=== PATIENT | male | born 1950 | race Caucasian/White ===

== ENCOUNTER → 2022-03-23 | Outpatient (CLI) | payer MEDICARE, OTHER ==
--- NOTE | 2022-03-23 14:43 | CT ---
EXAMINATION TYPE: CT left knee - [facility] Protocol CT DLP: 607 mGycm, Automated exposure control for dose reduction was used. DATE OF EXAM: 03/23/2022 1:48 PM COMPARISON: None CLINICAL INDICATION:Male, 72 years old with history of M25.562 PAIN IN LEFT KNEE, Left knee pain TECHNIQUE: Axial images were obtained of the left knee , hips, pelvis and left ankle. Additional cor onal and sagittal reformatted images and soft tissue and bone window were obtained for review. Contrast used: None Oral contrast used: None FINDINGS: There is osteophyte formation of the left patella, femoral condyles and tibial plateau. Nelida nt space narrowing is seen throughout the knee compartments. There is complete cartilage loss involvi ng the lateral femoral condyle with subchondral cystic changes and sclerosis. There is subchondral cy stic changes involving the patellar facets both the medial and lateral aspects. There is no evidence of fracture, subluxation, or dislocation. No significant soft tissue swelling or joint effusion is i dentified. No focal muscular atrophy or edema is identified. No radiopaque foreign body identified. V isualized portions of the ankle joints demonstrate mild osteoarthrosis changes. No evidence of fractu re. There is an os trigonum present. Mild osteophyte formation of the acetabula bilaterally. There is subchondral cystic changes of the acetabulum on the right greater than the left.. Atherosclerosis of the arterial vasculature. Right fat filled inguinal hernia. Scattered clonic diver ticula. IMPRESSION: 1. Severe osteoarthrosis of the left knee. 2. Severe right and moderate left hip osteoarthrosis. 3. No evidence of fracture.
== END | disposition home or self-care (01) ==
LOC: RADCTMAIN 13:06
PROVIDERS: ATTEND Orthopaedic Surgery
DX: M17.12 Unilateral primary osteoarthritis, left knee (principal); M16.0 Bilateral primary osteoarthritis of hip

== ENCOUNTER → 2022-03-30 | Outpatient (CLI) | payer MEDICARE, OTHER ==
[2022-03-30 13:39] LABS: Appearance,Urine Clear (Clear); Bilirubin,Urine Negative (Negative); Blood,Urine Small (Negative); Color,Urine Yellow; Glucose,Urine (UA) Negative (Negative); Ketones,Urine Negative (Negative); Leukocyte Esterase,Urine Negative (Negative); Mucus,Urine Rare /hpf; Nitrite,Urine Negative (Negative); PH, Urine 7.5 (5.0-8.0); Protein,Urine 1+ (Negative); RBC,Urine 54 /hpf (0-5); Specific Gravity,Urine 1.019 (1.001-1.035); Squamous Epithelial Cell,Urine <1 /hpf (0-4); WBC,Urine 1 /hpf (0-5)
[2022-03-30 13:41] LABS: Partial Thromboplastin Time 24.3 sec (22.0-30.0); Prothrombin Time 11.1 sec (9.0-12.0)
[2022-03-30 18:07] LABS: HCT 52.4 % (39.6-50.0); HGB 17.9 g/dL (13.0-17.0); MCH 32.8 pg (27.0-32.0); MCHC 34.2 g/dL (32.0-37.0); Mean Platelet Volume 10.3 fL (9.5-12.2); NRBC Per 100 WBC 0 /100 WBCS (0.0-0.0); Platelet Count 207 X 10*3/uL (140-440); RBC 5.46 X 10*6/uL (4.40-5.60); WBC 6.94 X 10*3/uL (4.50-10.00)
[2022-03-30 18:17] LABS: African American GFR (CKD) 82.2 (60.0-200.0); Albumin 4.1 g/dL (3.8-4.9); Albumin/Globulin Ratio 1.86 (1.60-3.17); Anion Gap 11.6 mmol/L (10.00-18.00); Blood Urea Nitrogen 15.6 mg/dL (9.0-27.0); Calcium 9.7 mg/dL (8.7-10.3); Carbon Dioxide 27.6 mmol/L (20.0-27.5); Globulin 2.2 g/dL (1.6-3.3); Non-African American GFR(CKD) 70.9 (60.0-200.0); Potassium 4.2 mmol/L (3.5-5.5); Total Bilirubin 0.7 mg/dL (0.30-1.20); Total Protein 6.4 g/dL (6.2-8.2)
== END | disposition home or self-care (01) ==
LOC: LABWHC1 11:24
PROVIDERS: ATTEND Orthopaedic Surgery
DX: Z01.812 Encounter for preprocedural laboratory examination (principal)
CPT/HCPCS: 36415; 80053; 81001; 85027; 85610; 85730; 87070

== ENCOUNTER → 2022-04-06 | Outpatient (CLI) | payer MEDICARE, OTHER ==
--- NOTE | 2022-04-06 13:54 | CT ---
EXAMINATION TYPE: CT left knee - [facility] Protocol DATE OF EXAM: 04/06/2022 COMPARISON: NONE HISTORY: Left knee pain and osteoarthritis CT DLP: 994 mGycm. Automated Exposure Control for Dose Reduction was Utilized. TECHNIQUE: CT scan of the pelvis and left lower extremity is performed without IV contrast. FINDINGS: Exam is for surgical planning and not for diagnostic purposes. Moderate narrowing and mild to moderat e subchondral cystic change of both hip joints is incidentally seen. Sigmoid colonic diverticulosis i s partially imaged. Enlarged prostate is noted. Left knee shows large size suprapatellar joint effusion. Mild patellofemoral compartment narrowing wi th mild to moderate posterior spurring is present. [id number] medial tibiofemoral compartment narrowing is seen with endplate sclerosis. Severe anterior subcutaneous edema level of the patellar tendon noted. Moderate to large size located popliteal cyst is present. Ankle images are grossly unremarkable. IMPRESSION: As above.
== END | disposition home or self-care (01) ==
LOC: RADCTMAIN 10:22
PROVIDERS: ATTEND Orthopaedic Surgery
DX: M25.462 Effusion, left knee (principal); N40.0 Benign prostatic hyperplasia without lower urinary tract symptoms; K57.30 Diverticulosis of large intestine without perforation or abscess without bleeding

== ENCOUNTER 2022-04-08 11:15 | Day surgery (SDC) | payer MEDICARE, OTHER ==
[~2022-04-08 11:15] MED LIST: ACETAMINOPHEN TAB 500 MG TAB PO PRN; DEXAMETHASONE SOD PHOSPHATE 10 MG/ML 1 ML VIAL IV PRN; DEXAMETHASONE SOD PHOSPHATE 4 MG/ML 1 ML VIAL IV ONE; DOCUSATE 100 MG CAP PO PRN; FAMOTIDINE 20 MG/2 ML VIAL IVP PRN; HYDROmorphone 0.5 MG/0.5 ML SYRINGE IVP PRN; KETOROLAC 15 MG/ML 1 ML VIAL IVP PRN; LIDOCAINE 1% (10MG/ML) FOR IV START INTRADERMA PRN; MIDAZOLAM 2 MG/2 ML VIAL IV PRN; ONDANSETRON 4 MG/2 ML VIAL IVP PRN; ROPIVACAINE/EPI/CLONIDINE/KET 50 ML SYRINGE MISCELLANE PRN; TRANEXAMIC ACID IN NACL,ISO-OS 1,000 MG in SALINE 1 100ML.BAG IVPB PRN; ceFAZolin 3 GM in SODIUM CHLORIDE 0.9% 100 ML IVPB PRN; oxyCODONE ER 10 MG TAB.ER.12H PO PRN
[2022-04-08] MEDS: LACTATED RINGERS 1,000 ML IV SCH ×2 (12:38→17:42)
[2022-04-08] MEDS: ONDANSETRON 4 MG/2 ML VIAL IVP ONE ×2 (12:40→17:38)
[2022-04-08] MEDS ORDERED: MIDAZOLAM 2 MG/2 ML VIAL IVP ONE (12:50)
[2022-04-08] MEDS ORDERED: PROPOFOL 10 MG/ML 20 ML VIAL IV ONE (13:10)
[2022-04-08] MEDS ORDERED: HYDROmorphone (PF) 1 MG/ML ONE (13:10)
[2022-04-08] MEDS ORDERED: SUCCINYLCHOLINE CHLORIDE 200 MG/10 ML VIAL IV ONE (13:10)
[2022-04-08] MEDS ORDERED: DEXAMETHASONE SOD PHOSPHATE 4 MG/ML 1 ML VIAL ONE (13:10)
[2022-04-08] MEDS ORDERED: fentaNYL (PF) 50 MCG/ML 2 ML AMP ONE (13:10)
[2022-04-08] MEDS ORDERED: ePHEDrine 50 MG/ML 1 ML VIAL ONE (13:10)
[2022-04-08] MEDS ORDERED: ROPIVACAINE 5 MG/ML 30 ML VIAL ONE (13:10)
[2022-04-08] MEDS ORDERED: NEOSTIGMINE 1 MG/ML 10 ML VIAL ONE (13:10)
[2022-04-08] MEDS ORDERED: TRANEXAMIC ACID IN NACL,ISO-OS 1,000 MG/100 ML BAG ONE (13:10)
[2022-04-08] MEDS ORDERED: ROCURONIUM 10 MG/ML (5 ML VIAL) IV ONE (13:10)
[2022-04-08] MEDS ORDERED: LIDOCAINE 2% INJ 20 MG/ML (2 ML VIAL) ONE (13:10)
[2022-04-08] MEDS ORDERED: GLYCOPYRROLATE 0.2 MG/ML 2 ML VIAL ONE (13:10)
[2022-04-08] MEDS ORDERED: LACTATED RINGERS 1,000 ML IV ONE (14:53)
[2022-04-08] MEDS ORDERED: ROPIVACAINE 1,100 MG, SODIUM CHLORIDE 0.9% 500 ML 330 ML, EMPTY PAIN BALL 1 EACH MISCELLANE PRN ×4 (15:34→15:59)
[2022-04-08] MEDS ORDERED: hydrOXYzine pamoate 25 MG CAP PO PRN (15:47)
[2022-04-08] MEDS ORDERED: HYDROmorphone 0.5 MG/0.5 ML SYRINGE IVP PRN ×3 (15:47)
[2022-04-08] MEDS ORDERED: HYDROcodone/APAP 5-325MG 1 EACH TAB PO PRN (15:47)
[2022-04-08] MEDS ORDERED: ONDANSETRON 4 MG/2 ML VIAL IVP PRN (15:47)
[2022-04-08] MEDS ORDERED: NALOXONE 0.4 MG/ML 1 ML VIAL IV PRN (15:47)
--- NOTE | 2022-04-08 15:49 | P.OP ---
Date of Procedure: 04/08/22 Postoperative Diagnosis: 1. Severe left knee osteoarthritis 2. COPD 3. Hypertension Procedure(s) Performed: Left total knee arthroplasty Implants: 1. [place] [employer] CR Femur Size #5 2. [place]ila [employer]lon Jasper Tibial Base Size #6 3. Shila Tri[employer]lon CS poly Size #6, 9-mm 4. Shila Triathlon all poly patella, Size #32 Anesthesia: GETA Surgeon: Benito Simmons Divine Healer #1: Marguerite Sweet Estimated Blood Loss (ml): 100 IV fluids (ml): 1,200 Pathology: none sent Condition: stable Disposition: PACU Indications for Procedure: I met with the patient preoperatively in the office setting and discussed treatment of their symptomatic knee arthritis. They failed a long course of nonsurgical treatment and elected to proceed with an elective total knee replacement. I discussed the potential risks and complications at length and gave them ample time to ask questions. Risks discussed included: risks from anesthesia, superficial site surgical infection, acute and/or chronic periprosthetic joint infection, delayed wound healing, drainage, wound necrosis, instability, stiffness, stiffness requiring manipulation and/or revision surgery, damage to local blood vessels or nerves, aseptic loosening of the implants, extensor mechanism issues including disruption, patellar maltracking, avascular necrosis etc., continued or worsened knee pain, generalized dissatisfaction with surgical outcome, need for revision surgery, an inability to regain preinjury level of function, DVT, PE, other medical complications, and possibly loss of life or limb. The patient voiced their understanding that while these are the most common complications other less common complications are possible. They provided both their verbal and written consent to go forward with surgery. Operative Findings: Severe tricompartmental osteoarthritis Description of Procedure: The patient was identified in preoperative holding and the correct operative extremity was verified and marked with a marker. I reviewed the consent form with the patient at length. All of their questions were answered. The patient was given a block by anesthesia. They were then brought back to the operating room. They were transferred onto the operating room table where a general anesthetic, preoperative antibiotics, and tranexamic acid were administered by anesthesia. A tourniquet was applied to the proximal aspect of the operative extremity. The contralateral extremity was padded under the heel and secured to the operating room table with a nonsterile blue towel and tape. The ipsilateral arm was carefully draped across the patient's chest and secured with a pillow and foam. A post was applied over the lateral aspect of the ipsilateral thigh and a bolster was placed under the ipsilateral foot. I verified that the operative extremity was stable and the knee was flexed to 90. The operative extremity was then placed in a leg paz, nonsterile drapes were applied, and the extremity was prepped and draped sterilely in the standard sterile fashion. Prior to starting surgery timeout was performed identifying the correct patient, operative extremity, and procedure. The leg was then elevated, exsanguinated with an Esmarch bandage, and the tourniquet was inflated. An anterior midline incision was made sharply with a scalpel. Once I had dissected deep to the superficial fascial layer medial and lateral flaps were elevated. A medial parapatellar arthrotomy was created. Upon opening the knee joint there were diffuse arthritic changes in all 3 compartments. The anterior horn of the medial meniscus were sharply released and a medial release was performed around the posterior medial corner of the knee to facilitate retractor placement. The fat pad was excised with electrocautery. The patella was found to be severely arthritic and a provisional cut was made with a sagittal saw to facilitate mobilization of the extensor mechanism during the procedure. Remnants of the ACL and PCL were then excised from the notch. 4 mm pins were then placed within the incision in the medial distal femur and proximal tibia. Arrays were applied to the pins and I verified they were completely tightened. The knee was then registered with the Tyros robot and manipulations in implant position were made to balance the knee and opitmize implant position. Using the Agapito robotic saw all cuts were made in accordance with our plan. After all bony fragments had been removed the cuts were verified with the planar probe. The tibia was then subluxed forward and sized. The knee was brought into flexion and a lamina transportation worker was placed to allow removal of the meniscal remnants both medially and laterally as well as posterior osteophytes. Local anesthetic was then infiltrated around the joint capsule. Trial implants were then placed within the knee. Range of motion and collateral ligament tension was then evaluated. Adjustments in implant size and position were then made accordingly. Once the knee was felt to be appropriately balanced the Agapito pins were removed. The patella was then recut, sized, and punched. A trial patellar button was then placed. With the trial components in place, the patella tracked midline. The femur was then drilled and the trial component removed. The trial tibial component was then appropriately rotated, pinned, and prepared for the keel. All trial components were then removed from the knee. The knee was thoroughly irrigated with pulsatile lavage. Cement was prepared via vacuum mixing in a bowl on the back table. I then hand pressurized cement into the femur and tibia and placed the implants beginning with the tibial base tray and poly liner, femoral component, and finally the patellar button. All extruded cement was removed including from the pin sites. Once the cement had hardened the knee was evaluated one final time with the final polyethylene liner in place. The knee had full extension and flexion and felt stable to varus and valgus stress throughout the arc of motion. The tourniquet was released and with the tourniquet down the patella tracked midline. All bleeders were controlled with electrocautery. The knee was then soaked for 3 minutes with a dilute Betadine soak. The knee was thoroughly irrigated using 3 L of sterile saline and pulsatile lavage. A deep drain was placed. The extensor mechanism was then reapproximated using pop off Vicryl sutures followed by a running barbed suture. The knee was then closed in layers with a 0 strata fix for the deep fascial layer, 2-0 strata fix for the superficial subcutaneous layer and Monocryl and Steri-Strips for the skin. A sterile dressing and drain sponge were applied. I verified that all instrument, sponge, and sharp counts were correct. The agustin ent was then transferred off the operating room table, extubated, and brought to recovery having tolerated the procedure well. Marguerite Sweet PA-C was required as a skilled medical assistant dermatology due to the complexity of the procedure for patient positioning, draping, retraction, placement of hardware, and closure of wound. PLAN: The patient can weight-bear as tolerated on the operative extremity. DVT prophylaxis with aspirin 81 mg twice a day based on preoperative risk stratification. Follow-up in the office in 2 weeks for wound check and x-rays of the knee including an AP and lateral.
--- NOTE | 2022-04-08 15:51 | P.ANPRN ---
Procedure Note - Anesthesia - Nerve Block Performed Left Adductor Canal Infusion Time Out Performed: Yes Date of Procedure: 04/08/22 Procedure Start Time: 12:49 Procedure Stop Time: 13:00 Location of Patient: PreOp Indication: Acute Post-Operative Pain, Requested by Surgeon Sedation Type: Sedate with meaningful contact maintained Preparation: Sterile Prep, Sterile Dressing Position: Supine Catheter: Indwelling Needle Types: On-Q Needle Gauge: 18 Ultrasound used to visualize needle placement: Yes Ultrasound used to observe medication spread: Yes Injectate: 0.5% Ropivacaine (see comment for volume) (20 ml + decadron 5 mg) Blood Aspirated: No Pain Paresthesia on Injection Noted: No Resistance on Injection: Normal Image Stored and Saved: Yes Events: Uneventful and Well Tolerated Left iPack Single Time Out Performed: Yes Date of Procedure: 04/08/22 Procedure Start Time: 13:01 Procedure Stop Time: 13:06 Location of Patient: PreOp Indication: Acute Post-Operative Pain, Requested by Surgeon Sedation Type: Sedate with meaningful contact maintained Preparation: Sterile Prep, Sterile Dressing Position: Right Lateral Catheter: None Needle Types: Pajunk Needle Gauge: 20 Ultrasound used to visualize needle placement: Yes Ultrasound used to observe medication spread: Yes Injectate: 0.5% Ropivacaine (see comment for volume) (20 ml + decadron 5 mg) Blood Aspirated: No Pain Paresthesia on Injection Noted: No Resistance on Injection: Normal Image Stored and Saved: Yes Events: Uneventful and Well Tolerated
--- NOTE | 2022-04-08 16:48 | XR ---
EXAMINATION TYPE: XR knee limited LT DATE OF EXAM: 04/08/2022 COMPARISON: NONE HISTORY: Knee surgery TECHNIQUE: 2 views FINDINGS: There is left knee prosthesis. Components are in anatomic position. IMPRESSION: No complicating process seen.
[2022-04-08] MEDS: HYDROcodone/APAP 5-325MG 1 EACH TAB PO PRN (19:39)
[2022-04-08] MEDS: ASPIRIN 81 MG PO SCH (20:07)
[2022-04-08] MEDS: ceFAZolin 3 GM in SODIUM CHLORIDE 0.9% 100 ML IVPB SCH (20:07)
[2022-04-08] MEDS ORDERED: SENNOSIDES-DOCUSATE SODIUM 1 EACH TAB PO SCH (21:00)
[2022-04-09] MEDS: HYDROcodone/APAP 5-325MG 1 EACH TAB PO PRN (01:17)
[2022-04-09] MEDS: LACTATED RINGERS 1,000 ML IV SCH ×2 (03:21→05:53)
[2022-04-09] MEDS: ceFAZolin 3 GM in SODIUM CHLORIDE 0.9% 100 ML IVPB SCH (05:07)
--- NOTE | 2022-04-09 07:20 | P.PN ---
Progress Note - Text Progress Note Date: 04/09/22 Patient doing well. Minimal discomfort. Ambulating w/o weakness. Adductor catheter @ 8 ml/hr. Catheter site clean and dry. A/P POD#1 s/p L robotic TKA - doing well
--- NOTE | 2022-04-09 08:11 | P.DS ---
Providers Expected date of discharge: 04/09/22 Attending physician: Benito Simmons Consults: 04/08/22 15:54 Consult Physician Routine Consulting Provider: Corinne Villar Consult Reason/Comments: medical management Do you want consulting provider notified?: Yes Primary care physician: [facility] Course: This is a 72-year-old male who was last seen in our office for evaluation re garding left knee pain. He has a history of degenerative arthritis of the left knee and presents to discuss surgical options. After discussion and consideration patient elected to proceed with left total knee arthroplasty. The patient is seen preoperatively by Leslie Beltrán TEACHER'S AIDE, Dr. Fuentes and cleared for surgery. Patient is admitted to [facility] for total left knee arth roplasty. Procedure is performed without complication or sequelae. The patient is doing well postoperative. Vital signs and labs are stable on postoperative day #1. Patient is examined bedside this morning with Dr. Simmons. He states the pain in his left knee is well-controlled at this time. He has been ambulating with a walker with minimal assistance. He is voiding without issue. He denies new complaints or concerns morning of discharge. On examination, the patient is sitting up in bed in no apparent distress. He is alert and oriented 3. On inspection of the left knee, there is a clean, dry, intact OpSite dressing in place. Minimal bleeding through the dressing at the distal portion. The Hemovac drain is removed bedside this morning. Motor and sensory function is intact of the left lower extremity. Left lower extremity warm and well-perfused with brisk capillary refill distally. Calf is soft and nontender. The patient is discharged to home with home health care this morning, pending medical clearance.He is instructed to follow-up with Dr. Simmons in the office in two weeks. Please see discharge orders. Please refer to the med rec for accurate list of medications. Plan - Discharge Summary Discharge Rx Participant: No New Discharge Prescriptions: New Aspirin 81 mg PO BID 30 Days #60 tab Docusate [Colace] 100 mg PO BID #60 capsule Diclofenac Sodium [Voltaren] 75 mg PO BID 30 Days #60 tab HYDROcodone/APAP 5-325MG [[place] 5-325] 1 - 2 tab PO Q6HR PRN 7 Days #32 tab PRN Reason: Pain Omeprazole 40 mg PO DAILY 30 Days #30 cap No Action lisinopriL 40 mg PO DAILY hydroCHLOROthiazide [Hydrodiuril] 25 mg PO DAILY Metoprolol Succinate (ER) [Toprol Xl] 50 mg PO DAILY Ezetimibe [Zetia] 10 mg PO DAILY Ferrous Sulfate [Feosol] 325 mg PO DAILY Cholecalciferol [Vitamin D3 (125 Mcg = 5000 Iu)] 125 mcg PO DAILY Multivitamins, Thera [Multivitamin (formulary)] 1 tab PO DAILY Red Yeast Rice 600 mg PO DAILY Cider Vinegar [Apple Cider Vinegar] 300 mg PO DAILY amLODIPine [Norvasc] 5 mg PO DAILY Aspirin 81 mg PO DAILY Ubidecarenone [Co Q-10] 100 mg PO DAILY Potassium Chloride [Klor-Con M20] 20 meq PO DAILY Fish Oil/Dha/Epa [Fish Oil 1,200 mg Fish Oil] 1 each PO DAILY Discharge Medication List Aspirin 81 mg PO DAILY 04/06/22 [History] Cholecalciferol [Vitamin D3 (125 Mcg = 5000 Iu)] 125 mcg PO DAILY 04/06/22 [History] Cider Vinegar [Apple Cider Vinegar] 300 mg PO DAILY 04/06/22 [History] Ezetimibe [Zetia] 10 mg PO DAILY 04/06/22 [History] Ferrous Sulfate [Feosol] 325 mg PO DAILY 04/06/22 [History] Fish Oil/Dha/Epa [Fish Oil 1,200 mg Fish Oil] 1 each PO DAILY 04/06/22 [History] Metoprolol Succinate (ER) [Toprol Xl] 50 mg PO DAILY 04/06/22 [History] Multivitamins, Thera [Multivitamin (formulary)] 1 tab PO DAILY 04/06/22 [History] Potassium Chloride [Klor-Con M20] 20 meq PO DAILY 04/06/22 [History] Red Yeast Rice 600 mg PO DAILY 04/06/22 [History] Ubidecarenone [Co Q-10] 100 mg PO DAILY 04/06/22 [History] amLODIPine [Norvasc] 5 mg PO DAILY 04/06/22 [History] hydroCHLOROthiazide [Hydrodiuril] 25 mg PO DAILY 04/06/22 [History] lisinopriL 40 mg PO DAILY 09/26/22 [History] Aspirin 81 mg PO BID 30 Days #60 tab 04/09/22 [Rx] Diclofenac Sodium [Voltaren] 75 mg PO BID 30 Days #60 tab 04/09/22 [Rx] Docusate [Colace] 100 mg PO BID #60 capsule 04/09/22 [Rx] HYDROcodone/APAP 5-325MG [[place] 5-325] 1 - 2 tab PO Q6HR PRN 7 Days #32 tab 04/09/22 [Rx] Omeprazole 40 mg PO DAILY 30 Days #30 cap 04/09/22 [Rx] Follow up Appointment(s)/Referral(s): Residential Home,Health [NON-STAFF] - 1-2 Days Bentio Simmons MD [Medical Doctor] - 2 Weeks Activity/Diet/Wound Care/Special Instructions: Weight bear to tolerance on operative extremity with a walker. Keep operative dressing intact until follow-up in the office. Call the office if dressing becomes saturated or falls off. May shower over dressing. Take pain medications as prescribed. Take aspirin 81mg BID x 4 weeks for blood clot prevention. Follow-up in the office in two weeks with Dr. Simmons. Call the office with any questions or concerns, Discharge Disposition: HOME WITH HOME HEALTH SERVICES
[2022-04-09 08:22] VITALS: BP 112/72; PULSE 92; RESP 17; TEMP 97.6
[2022-04-09] MEDS: ASPIRIN 81 MG PO SCH (08:31)
--- NOTE | 2022-04-09 09:26 | P.CONS ---
History of Present Illness - Reason for Consult Consult date: 04/09/22 - History of Present Illness Patient is a 72-year-old male with a known history of hypertension, hyperlipidemia, COPD and prior history of smoking, obstructive sleep apnea status post surgery was admitted to the hospital for elective left total knee arthroplasty. Patient tolerated the procedure very well. Patient was hy pertensive postsurgery with blood pressure 163/87 mmHg. Currently patient is resting in her bed. Awake alert and oriented x3. No complaints of headache or dizziness or lightheadedness. No chest pain or shortness of breath. No cough or no sputum production. No fever no chills. Laboratory data showed WC 19.0 hemoglobin 13.7 and platelets 173 neutrophils 17.1 Patient was started back on his home blood pressure medications. Past Medical History Past Medical History: COPD, Hyperlipidemia, Hypertension, Osteoarthritis (OA), Sleep Apnea/CPAP/BIPAP Additional Past Medical History / Comment(s): has an aneurysm-card. is monitoring, had surg. for sleep apnea-no more issues with since surgery, anemia History of Any Multi-Drug Resistant Organisms: None Reported Additional Past Surgical History / Comment(s): surg. for sleep apnea, colonoscopies Past Anesthesia/Blood Transfusion Reactions: No Reported Reaction Smoking Status: Former smoker - Past Family History Mother Family Medical History: No Reported History Medications and Allergies Home Medications Medication Instructions Recorded Confirmed Type Aspirin 81 mg PO DAILY 04/06/22 04/08/22 History Cholecalciferol [Vitamin D3 (125 125 mcg PO DAILY 04/06/22 04/08/22 History Mcg = 5000 Iu)] Cider Vinegar [Apple Cider Vinegar] 300 mg PO DAILY 04/06/22 04/08/22 History Ezetimibe [Zetia] 10 mg PO DAILY 04/06/22 04/08/22 History Ferrous Sulfate [Iron (65 MG 325 mg PO DAILY 04/06/22 04/08/22 History Elemental)] Fish Oil/Dha/Epa [Fish Oil 1,200 1 each PO DAILY 04/06/22 04/08/22 History mg Fish Oil] Metoprolol Succinate (ER) [Toprol 50 mg PO DAILY 04/06/22 04/08/22 History XL] Multivitamins, Thera [Multivitamin 1 tab PO DAILY 04/06/22 04/08/22 History (formulary)] Potassium Chloride [Klor-Con M20] 20 meq PO DAILY 04/06/22 04/08/22 History Red Yeast Rice 600 mg PO DAILY 04/06/22 04/08/22 History Ubidecarenone [Co Q-10] 100 mg PO DAILY 04/06/22 04/08/22 History amLODIPine [Norvasc] 5 mg PO DAILY 04/06/22 04/08/22 History hydroCHLOROthiazide [Hydrodiuril] 25 mg PO DAILY 04/06/22 04/08/22 History lisinopriL 40 mg PO DAILY 04/06/22 04/08/22 History Aspirin 81 mg PO BID 30 Days #60 tab 04/09/22 Rx Diclofenac Sodium [Voltaren] 75 mg PO BID 30 Days #60 tab 04/09/22 Rx Docusate [Colace] 100 mg PO BID #60 capsule 04/09/22 Rx HYDROcodone/APAP 5-325MG [[place] 1 - 2 tab PO Q6HR PRN 7 Days #32 04/09/22 Rx 5-325] tab Omeprazole 40 mg PO DAILY 30 Days #30 cap 04/09/22 Rx Allergies Allergy/AdvReac Type Severity Reaction Status Date / Time No Known Allergies Allergy Verified 04/08/22 11:59 Physical Exam Vitals: Vital Signs Temp Pulse Pulse Pulse Resp BP BP 04/09/22 08:00 97.6 F 92 17 112/72 04/09/22 01:55 97.3 F L 78 20 105/67 04/08/22 19:42 97.5 F L 97 22 164/96 04/08/22 17:50 81 16 104/73 04/08/22 17:10 85 16 128/73 04/08/22 16:55 68 16 128/73 04/08/22 16:40 77 16 132/76 04/08/22 16:26 75 16 128/75 04/08/22 16:11 71 16 112/59 04/08/22 15:56 72 16 144/79 04/08/22 15:41 97.5 F L 75 12 163/87 04/08/22 13:10 60 18 04/08/22 12:22 97.3 F L 58 L 20 142/89 Pulse Ox 04/09/22 08:00 97 04/09/22 01:55 90 L 04/08/22 19:42 96 09/28/22 17:50 91 L 04/08/22 17:10 93 L 04/08/22 16:55 92 L 04/08/22 16:40 96 04/08/22 16:26 96 04/08/22 16:11 96 04/08/22 15:56 93 L 04/08/22 15:41 95 04/08/22 13:10 94 L 04/08/22 12:22 94 L Intake and Output 04/08/22 04/09/22 04/09/22 22:59 06:59 14:59 Intake Total 300 1920 Output Total 50 300 55 Balance 250 1620 -55 Intake: IV 200 Intake, IV Titration 100 1200 Amount Lactated Ringers 1,000 ml 1200 @ 100 mls/hr IV .Q10H ESTRADA Rx#:[id number] ceFAZolin 3 gm In Sodium 100 Chloride 0.9% 100 ml @ 200 mls/hr IVPB Q8H ESTRADA Rx#:[id number] Oral 720 Output: Drainage 50 300 55 Left Knee 50 300 55 Other: # Voids 1 1 Weight 122.7 kg Results CBC & Chem 7: 04/09/22 06:46 Assessment and Plan Assessment: S/p left total knee arthroplasty postoperative day 1 Leukocytosis likely due to postsurgical inflammation and steroid dose. Unlikely infection. Uncontrolled hypertension. Blood pressure improved now History of obstructive sleep apnea status post surgery. Hypertension Hyperlipidemia COPD not on home oxygen. Previous history of smoking DVT prophylaxis Plan: Patient will be continued on pain management, bowel regimen and incentive spirometry. Started back on home blood pressure medications including Toprol-XL, Norvasc and hydrochlorothiazide and lisinopril. Titrate dose as needed. Patient was advised to follow with primary care physician. Advised to monitor his blood pressure at home. Anticoagulation and pain management as per primary team. . Patient is being discharged home. Medication reconciliation was done. Time with Patient: Greater than 30
[2022-04-09 10:32] LABS: Basophils # (A) 0.02 X 10*3/uL (0.00-0.10); Basophils % (A) 0.1 %; Eosinophils # (A) 0 X 10*3/uL (0.04-0.35); Eosinophils % (A) 0 %; HCT 41.3 % (39.6-50.0); HGB 13.7 g/dL (13.0-17.0); Immature Grans, Automated 0.8 %; Lymphocytes # (A) 0.65 X 10*3/uL (0.90-5.00); Lymphocytes % (A) 3.4 %; MCH 32.1 pg (27.0-32.0); MCHC 33.2 g/dL (32.0-37.0); MCV 96.7 fL (80.0-97.0); Mean Platelet Volume 9.8 fL (9.5-12.2); Monocytes % (A) 5.8 %; NRBC Per 100 WBC 0 /100 WBCS (0.0-0.0); Neutrophils % (A) 89.9 %; Platelet Count 173 X 10*3/uL (140-440); RBC 4.27 X 10*6/uL (4.40-5.60); RDW 12.3 % (11.5-14.5); WBC 19.02 X 10*3/uL (4.50-10.00)
== END 2022-04-09 13:15 | disposition home health service (06) ==
LOC: OR 11:15 → 4SSUR 16:50 → OR 04-09 13:15
PROVIDERS: ATTEND Orthopaedic Surgery
DX: M17.12 Unilateral primary osteoarthritis, left knee (principal); M25.762 Osteophyte, left knee; G89.18 Other acute postprocedural pain; I10 Essential (primary) hypertension; J44.9 Chronic obstructive pulmonary disease, unspecified; M25.462 Effusion, left knee; M77.42 Metatarsalgia, left foot; M79.672 Pain in left foot; E78.5 Hyperlipidemia, unspecified; Z97.3 Presence of spectacles and contact lenses; F17.200 Nicotine dependence, unspecified, uncomplicated; Z86.59 Personal history of other mental and behavioral disorders; Z79.82 Long term (current) use of aspirin
CPT/HCPCS: 97162; 64999; 64448; 76942; 85025; 73560; 27447; C1776 ×2; C1713; J2250; J1100; J0690 ×2; J2405; J2795; J1885